=== PATIENT | male | born 1965 | race American Indian/Alaskan Native ===

== ENCOUNTER 2017-12-02 07:54 | Emergency (ER) | payer OTHER ==
[2017-12-02 08:00] VITALS: BP 135/94
--- NOTE | 2017-12-02 09:53 | Emergency Department Report ---
HPI - General Chief Complaint: Extremity Injury, Lower Time Seen by Provider: 12/02/17 09:21 - HPI HPI: he is a 52-year-old male who presents to the ED complaining of right knee pain for the past couple months. Patient states he has a history of a torn anterior cruciate ligament about 15 years ago which he has surgery on that knee. Patient states intermittently he gets swelling and pain in the foot. Patient states this is her orthopedic surgeon that getting cortisone shots in the knee. Patient states his next appointment is noted November 30. Patient states last night he got a little bit of swelling and pain in the right knee. 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 Patient states he was able to get the swelling down by his compressions subjective since all posttussive pain. ED Past Medical Hx - Past Medical History Previous Medical History?: Yes Hx Hypertension: Yes - Surgical History Past Surgical History?: No - Social History Smoking Status: Current Every Day Smoker Substance Use Type: None - Medications Home Medications: Home Medications Medication Instructions Recorded Confirmed Last Taken Type Cyclobenzaprine [Flexeril] 10 mg PO QHS PRN #20 tablet 12/02/[address] [[place]] 75 mg PO BID #20 tablet 12/02/17 Unknown Rx ED Review of Systems ROS: Stated complaint: KNEE PAIN Other details as noted in HPI Constitutional: denies: chills, fever Respiratory: denies: wheezing Cardiovascular: denies: chest pain, palpitations Endocrine: no symptoms reported Gastrointestinal: denies: abdominal pain, nausea, diarrhea Genitourinary: denies: urgency, dysuria Musculoskeletal: arthralgia (Right knee). denies: back pain, joint swelling Skin: denies: rash, lesions Neurological: denies: headache, weakness, paresthesias Psychiatric: denies: anxiety, depression Hematological/Lymphatic: denies: easy bleeding, easy bruising Physical Exam - Physical Exam Vital Signs: Vital Signs 12/02/17 07:56 Temperature 97.8 F Pulse Rate 60 Respiratory 16 Rate Blood Pressure 135/94 O2 Sat by Pulse 100 Oximetry Physical Exam: GENERAL: Alert and oriented x3, no apparent distress, Normal Gait, atraumatic. HEAD: Head is normocephalic and a-traumatic. EYES: Extra ocular muscles are intact. Pupils are equal, round, and reactive to light and accommodation. LUNGS: Symetrical with respiration, No wheezing, no rales or crackles, CTAB. HEART: S1, S2 present, regular rate and rhythm without murmur. EXTREMITIES/MUSCULOSKELETAL: No cyanosis, clubbing, rash, lesions or edema seen bilaterally in lower extremities. Full ROM bilaterally. LE 5+ strength bilaterally, straight leg raise negative bilaterally. Pain with flexion of the right knee. No tenderness to palpation of the right knee, no swelling, no erythema, lesions seen. NEUROLOGIC: The patient is cooperative with no focal neurologic deficits. Normal speech. Normal sensation in bilateral upper and lower extremities, No loss of sensation, SKIN: Warm and dry, No lesions, No ulceration or induration present. ED Course Vital Signs 12/02/17 07:56 Temperature 97.8 F Pulse Rate 60 Respiratory 16 Rate Blood Pressure 135/94 O2 Sat by Pulse 100 Oximetry ED Medical Decision Making - Medical Decision Making 52-year-old male presents to ED with Right knee pain ED course: Patient received Toradol and Flexeril in ED. Vital signs are normal patient is in no acute distress Discussed with patient follow-up with primary care physician. Discussed the patient and take medications as prescribed. Patient has no neurological deficit. Patient is alert and oriented 3 and understands all instructions given. Discussed drowsiness effect of Flexeril makes her drowsy and not to operate machinery while taking flexeril. I discussed the patient to follow-up and keep his appointment on the 28. Discussed with the patient I'll give him some pain relief medications to dilute to follow-up with his orthopedic Dr Patient able to ambulate properly with no problems Critical care attestation.: If time is entered above; I have spent that time in minutes in the direct care of this critically ill patient, excluding procedure time. ED Disposition Clinical Impression: Knee pain, chronic Qualifiers: Laterality: right Qualified Code(s): M25.561 - Pain in right knee; G89.29 - Other chronic pain; G89.29 - Other chronic pain Arthralgia Qualifiers: Joint pain location: knee Laterality: right Qualified Code(s): M25.561 - Pain in right knee Disposition: - TO HOME OR SELFCARE Is pt being admited?: No Does the pt Need Aspirin: No Condition: Stable Instructions: Arthralgia (ED), Knee Exercises (GEN), Knee Pain (ED) Additional Instructions: Make sure to follow up with the primary care physician as discussed. Take all your medications as you've been prescribed. If you have any worsening symptoms or develop new symptoms please return to ED immediately. Prescriptions: Cyclobenzaprine [Flexeril] 10 mg PO QHS PRN #20 tablet PRN Reason: Muscle Spasm Diclofenac Dr [Voltaren Dr] 75 mg PO BID #20 tablet Referrals: PRIMARY CAREMD [Primary Care Provider] - 3-5 Days FLETCHER LAM MD [Staff Physician] - 3-5 Days Forms: Work/School Release Form(ED) Time of Disposition: 10:11
[2017-12-02] MEDS ORDERED: TORADOL IM ONE (10:02)
[2017-12-02] MEDS ORDERED: FLEXERIL PO ONE (10:02)
== END 2017-12-02 10:52 | disposition home or self-care (01) ==
LOC: ED 07:54
DX: M25.561 Pain in right knee (principal); G89.29 Other chronic pain; M79.89 Other specified soft tissue disorders; I10 Essential (primary) hypertension; F17.200 Nicotine dependence, unspecified, uncomplicated
CPT/HCPCS: 96372; 99282; J1885